=== PATIENT | female | born 1970 | race Caucasian/White ===

== ENCOUNTER 2020-12-14 22:27 | Emergency (ER) | payer BC ==
[~2020-12-14 22:27] MED LIST: ZOFRAN4 MG PO
[2020-12-15 01:39] LABS: HEMOGLOBIN 15.4 gm/dl (12.3-15.3); RED BLOOD COUNT 5.6 M/UL (4.00-5.10); WHITE BLOOD COUNT 10.3 K/UL (4.5-11.0)
[2020-12-15 01:54] LABS: BUN/CREATININE RATIO 25 (0-10)
== END 2020-12-15 05:57 | disposition home or self-care (01) ==
LOC: ER1 22:27
PROVIDERS: Physician Assistant
DX: K21.9 Gastro-esophageal reflux disease without esophagitis (principal); R74.01 Elevation of levels of liver transaminase levels; E78.5 Hyperlipidemia, unspecified; Z90.710 Acquired absence of both cervix and uterus
CPT/HCPCS: 36415; 71045; 80053; 82150; 82550; 82553; 83690; 83874; 84484; 85025; 93005; 99285

== ENCOUNTER → 2020-12-23 | Outpatient (CLI) | payer BC | LOC: KOH-I 11:00 | DX: R94.5 Abnormal results of liver function studies (principal); K76.0 Fatty (change of) liver, not elsewhere classified; K80.20 Calculus of gallbladder without cholecystitis without obstruction | CPT/HCPCS: 76705 ==

== ENCOUNTER → 2021-01-20 | Outpatient (CLI) | payer BC | LOC: NM 08:00 | DX: R07.9 Chest pain, unspecified (principal); I51.7 Cardiomegaly; I35.1 Nonrheumatic aortic (valve) insufficiency; R93.1 Abnormal findings on diagnostic imaging of heart and coronary circulation; R94.39 Abnormal result of other cardiovascular function study | CPT/HCPCS: ECHO; 78452; 93017; 93306; A9502; J2785 ==

== ENCOUNTER → 2021-06-09 | Outpatient (CLI) | payer OTHER | LOC: KOH-I 12:25 | DX: M54.2 Cervicalgia (principal); M43.12 Spondylolisthesis, cervical region; M46.02 Spinal enthesopathy, cervical region | CPT/HCPCS: 72040 ==

== ENCOUNTER 2021-07-02 03:34 | Emergency (ER) | payer OTHER | END 2021-07-02 07:17 | disposition home or self-care (01) | LOC: ER1 03:34 | DX: L02.416 Cutaneous abscess of left lower limb (principal); I10 Essential (primary) hypertension | CPT/HCPCS: 10060; 99282 ==

== ENCOUNTER 2021-10-19 11:23 | Emergency (ER) | payer OTHER ==
[2021-10-19] MEDS ORDERED: CEPHALEXIN500 M1 PO (12:23)
[2021-10-19] MEDS ORDERED: IBUPROFEN600 MG PO (12:23)
== END 2021-10-19 12:58 | disposition home or self-care (01) ==
LOC: ER1 11:23
DX: S68.120A Partial traumatic metacarpophalangeal amputation of right index finger, initial encounter (principal); W23.0XXA Caught, crushed, jammed, or pinched between moving objects, initial encounter; Y92.009 Unspecified place in unspecified non-institutional (private) residence as the place of occurrence of the external cause; Z23 Encounter for immunization
CPT/HCPCS: 73130; 90715; 96372; 99283; J0690